=== PATIENT | female | born 1970 | race African-American/Black ===

== ENCOUNTER 2017-04-23 16:05 | Emergency (ER) | payer MEDICAID ==
--- NOTE | 2017-04-23 16:35 | EDM.PDOC ---
<Joshua Lebron - Last Filed: 04/23/17 16:25> ED HPI GENERAL MEDICAL PROBLEM - General Chief Complaint: Upper Extremity Injury/Pain Stated Complaint: RT HAND HURTS Time Seen by Provider: 04/23/17 16:47 Source of Information: Reports: Patient History Limitations: Reports: No Limitations - History of Present Illness INITIAL COMMENTS - FREE TEXT/NARRATIVE: History of present illness: [46-year-old female comes in complaining of wrist pain. Denies any trauma acknowledges that her job requires repetitive motion and she says she has read up on carpal tunnel and she believes that might be what she has.] Review of systems: As per history of present illness and below otherwise all systems reviewed and negative. Past medical history: As per history of present illness and as reviewed below otherwise noncontributory. Surgical history: As per history of present illness and as reviewed below otherwise noncontributory. Social history: No reported history of drug or alcohol abuse. Family history: As per history of present illness and as reviewed below otherwise noncontributory. Physical exam: HEENT: Atraumatic, normocephalic, pupils reactive, negative for conjunctival pallor or scleral icterus, mucous membranes moist, throat clear, neck supple, nontender, trachea midline. Lungs: Clear to auscultation, breath sounds equal bilaterally, chest nontender. Heart: S1S2, regular, negative for clicks, rubs, or JVD. Abdomen: Soft, nondistended, nontender. Negative for masses or hepatosplenomegaly. Negative for costovertebral tenderness. Pelvis: Stable nontender. Genitourinary: Deferred. Rectal: Deferred. Extremities: Atraumatic, pain on ulnar side radiating down into hand with point tenderness with pressure, negative for cords or calf pain. Neurovascular unremarkable. Neuro: Awake, alert, oriented. Cranial nerves II through XII unremarkable. Cerebellum unremarkable. Motor and sensory unremarkable throughout. Exam nonfocal. Patient indicates that her hands hurt worse at night and in the morning when she wakes up she has trouble moving fingers including inability to snap her fingers indicates that she does a lot of repetitive motion at her work and she notices that's when she has the most pain. symptoms were indeed consistent with carpal tunnel and would provide a immobilizer as well as an anti-inflammatory and referral to a primary care for further diagnostic workup potential nerve conduction study and referral. Diagnostics: [] Therapeutics: [] Impression: [#1 wrist pain] Plan: [Meloxicam, immobilizer] Definitive disposition and diagnosis as appropriate pending reevaluation and review of above. - Related Data Allergies Allergy/AdvReac Type Severity Reaction Status Date / Time No Known Allergies Allergy Verified 04/23/17 16:24 Home Meds: Home Meds Meloxicam 7.5 mg PO BID #30 tablet 04/23/17 [Rx] Past Medical History [employer] History: Reports: - Past Surgical History Female Surgical History: Reports: Section Social & Family History - Family History Family Medical History: Noncontributory - Tobacco Use Smoking Status *Q: Current Every Day Smoker Years of Tobacco use: 20 Packs/Tins Daily: 0.3 Used Tobacco, but Quit: No Second Hand Smoke Exposure: Yes - Caffeine Use Caffeine Use: Reports: None - Recreational Drug Use Recreational Drug Use: No Review of Systems - Review of Systems Review Of Systems: See Below (See history of present illness) ED EXAM, GENERAL - Physical Exam Exam: See Below (See history of present illness) Course - Vital Signs Last Recorded V/S: Last Vital Signs Temp 36.6 C 04/23/17 16:05 Pulse 72 04/23/17 16:05 Resp 18 04/23/17 16:05 BP 112/73 04/23/17 16:05 Pulse Ox 99 04/23/17 16:05 - Orders/Labs/Meds Orders: Active Orders 24 hr Category Date Time Status DME for Discharge [COMM] Stat Oth 04/23/17 16:52 Ordered Departure - Departure Time of Disposition: 16:54 Disposition: Home, Self-Care 01 Condition: Good Clinical Impression: Wrist pain - Discharge Information Prescriptions: Meloxicam 7.5 mg PO BID #30 tablet Instructions: Wrist Pain, [id number] Referrals: PCP,None [Primary Care Provider] - Forms: ED Department Discharge Additional Instructions: The following information is given to patients seen in the emergency department who are being discharged to home. This information is to outline your options for follow-up care. We provide all patients seen in our emergency department with a follow-up referral. The need for follow-up, as well as the timing and circumstances, are variable depending upon the specifics of your emergency department visit. If you don't have a primary care physician on staff, we will provide you with a referral. We always advise you to contact your personal physician following an emergency department visit to inform them of the circumstance of the visit and for follow-up with them and/or the need for any referrals to a consulting specialist. The emergency department will also refer you to a specialist when appropriate. This referral assures that you have the opportunity for follow-up care with a specialist. All of these measure are taken in an effort to provide you with optimal care, which includes your follow-up. Under all circumstances we always encourage you to contact your private physician who remains a resource for coordinating your care. When calling for follow-up care, please make the office aware that this follow-up is from your recent emergency room visit. If for any reason you are refused follow-up, please contact the [facility] Emergency Department at and asked to speak to the emergency department charge nurse. Use your splint as much as possible Take your medicine as directed Follow-up with your PCP in 1-2 days Return to ED as needed as discussed [facility] [address] [place] [id number] <Alida Arizmendi - Last Filed: 04/23/17 17:57> ED HPI GENERAL MEDICAL PROBLEM - History of Present Illness INITIAL COMMENTS - FREE TEXT/NARRATIVE: Please add to therapeutics Velcro wrist splint right wrist Pain Score (Numeric/FACES): 8
[2017-04-23 19:25] VITALS: BP 107/66
== END 2017-04-23 17:15 | disposition home or self-care (01) ==
LOC: MW.ED 16:05
DX: M25.531 Pain in right wrist (principal); F17.210 Nicotine dependence, cigarettes, uncomplicated
CPT/HCPCS: 99282; 99283

== ENCOUNTER 2017-05-20 14:02 | Emergency (ER) | payer MEDICAID ==
[2017-05-20] MEDS ORDERED: Ondansetron 4 MG Tab.DIS PO ONE (14:39)
[2017-05-20] MEDS ORDERED: Dicyclomine 10 MG Cap PO ONE (14:39)
--- NOTE | 2017-05-20 14:43 | EDM.PDOC ---
ED HPI GENERAL MEDICAL PROBLEM - General Chief Complaint: Abdominal Pain Stated Complaint: ABD PAIN Time Seen by Provider: 05/20/17 14:32 - History of Present Illness INITIAL COMMENTS - FREE TEXT/NARRATIVE: HISTORY AND PHYSICAL: History of present illness: The patient is a 46-year-old female with a history of a and bilateral tubal ligation but no other GI or history presents with complaints of diffuse abdominal pain that has been going on for the last 2 days. She says it was gradual in onset and is diffuse and not localize right or left or upper or lower abdominal areas. It is associated with nausea but no vomiting and she has had a bowel movement daily including one today which was not black or bloody and not diarrhea. The patient says that the pain waxes and wanes and when it intensifies she feels the urge to defecate but nothing happens. She's been urinating normally and has no flank pain. She has no fevers chills or upper respiratory symptoms. The patient says that she feels somewhat bloated and gassy. She has tried [id number] gas medications and it did not help. On my evaluation she says she's having the discomfort but is not excruciating and she has the nausea still. Patient does admit that she drinks a lot of soda pop and does not eat a very healthy diet more on the go. Review of systems: As per history of present illness and below otherwise all systems reviewed and negative. Past medical history: As per history of present illness and as reviewed below otherwise noncontributory. Surgical history: As per history of present illness and as reviewed below otherwise noncontributory. Social history: No reported history of drug or alcohol abuse. Family history: As per history of present illness and as reviewed below otherwise noncontributory. Physical exam: Gen.: Well-developed well-nourished female who is nontoxic and vital signs have been reviewed by me. She moves easily in ED without distress HEENT: Atraumatic, normocephalic, pupils reactive, negative for conjunctival pallor or scleral icterus, mucous membranes moist, throat clear, neck supple, nontender, trachea midline. Lungs: Clear to auscultation, breath sounds equal bilaterally, chest nontender. Heart: S1S2, regular rate and rhythm no overt murmurs Abdomen: Soft, nondistended, nontender--my evaluation and was actually no tenderness rebound or guarding on palpation but there was tympany on percussion.. Negative for masses or hepatosplenomegaly. Negative for costovertebral tenderness. Pelvis: Stable nontender. Genitourinary: Deferred. Rectal: Deferred. Extremities: Atraumatic, negative for cords or calf pain. Neurovascular unremarkable. Neuro: Awake, alert, oriented. Cranial nerves II through XII unremarkable. Cerebellum unremarkable. Motor and sensory unremarkable throughout. Exam nonfocal. Diagnostics: Abdominal x-rays CBC CMP amylase lipase UA Therapeutics: Zofran and Bentyl Patient is aware of all testing results and care plan for home to include the Bentyl and Zofran. I've advised her on reasons to return and things to look out for. She states understanding. We talked about reducing soda pop and poor dietary intake. I will refer to the clinic. Physically asked her about her period and the urine sample and she said she is just finishing her period so there might of been a small amount of blood in the urine associated with that Impression: Abdominal pain/nausea/abdominal distention stable Definitive disposition and diagnosis as appropriate pending reevaluation and review of above. abdomen Pain Score (Numeric/FACES): 10 - Related Data Allergies Allergy/AdvReac Type Severity Reaction Status Date / Time No Known Allergies Allergy Verified 05/20/17 14:11 Home Meds: Home Meds . [No Known Home Meds] 05/20/17 [History] Past Medical History - Past Health History Medical/Surgical History: Denies Medical/Surgical History [employer] History: Reports: - Past Surgical History Female Surgical History: Reports: Section Social & Family History - Family History Family Medical History: Noncontributory - Tobacco Use Smoking Status *Q: Current Every Day Smoker Years of Tobacco use: 25 Packs/Tins Daily: 1 Used Tobacco, but Quit: No Second Hand Smoke Exposure: Yes - Caffeine Use Caffeine Use: Reports: Coffee Caffeine Use Comment: 2 cups daily - Recreational Drug Use Recreational Drug Use: Yes Drug Use in Last 12 Months: Yes Recreational Drug Type: Reports: Marijuana/Hashish Recreational Drug Use Frequency: Daily ED ROS GENERAL - Review of Systems Review Of Systems: ROS reveals no pertinent complaints other than HPI. ED EXAM, GENERAL - Physical Exam Exam: See Below (See dictation) Course - Vital Signs Last Recorded V/S: Last Vital Signs Temp 36.8 C 05/20/17 14:02 Pulse 77 05/20/17 14:02 Resp 18 05/20/17 14:02 BP 103/61 05/20/17 14:02 Pulse Ox 100 05/20/17 14:02 - Orders/Labs/Meds Labs: Laboratory Tests 05/20/17 05/20/17 05/20/17 Range/Units 14:48 14:48 14:50 WBC 11.34 H (4.0-11.0) K/uL RBC 3.55 L (4.30-5.90) M/uL Hgb 11.7 L (12.0-16.0) g/dL Hct 34.7 L (36.0-46.0) % MCV 97.7 (80.0-98.0) fL MCH 33.0 H (27.0-32.0) pg MCHC 33.7 (31.0-37.0) g/dL RDW Std Deviation 50.4 (28.0-62.0) fl RDW Coeff of Kishan 14 (11.0-15.0) % Plt Count 228 (150-400) K/uL MPV 9.50 (7.40-12.00) fL Neut % (Auto) 85.7 H (48.0-80.0) % Lymph % (Auto) 8.9 L (16.0-40.0) % Garza % (Auto) 4.7 (0.0-15.0) % Eos % (Auto) 0.6 (0.0-7.0) % Baso % (Auto) 0.1 (0.0-1.5) % Neut # (Auto) 9.7 H (1.4-5.7) K/uL Lymph # (Auto) 1.0 (0.6-2.4) K/uL Garza # (Auto) 0.5 (0.0-0.8) K/uL Eos # (Auto) 0.1 (0.0-0.7) K/uL Baso # (Auto) 0.0 (0.0-0.1) K/uL Nucleated RBC % 0.0 /100WBC Nucleated RBCs # 0 K/uL Sodium 139 (136-146) mmol/L Potassium 3.5 (3.5-5.1) mmol/L Chloride 110 (98-110) mmol/L Carbon Dioxide 22 (21-31) mmol/L BUN 5 L (6.0-23.0) mg/dL Creatinine 0.7 (0.6-1.5) mg/dL Est Cr Clr Drug Dosing 84.84 mL/min Estimated GFR (MDRD) > 60.0 ml/min Glucose 92 (60-110) mg/dL Calcium 8.8 (8.8-10.8) mg/dL Total Bilirubin 0.4 (0.1-1.5) mg/dL AST 37 (5-40) IU/L ALT 27 (8-54) IU/L Alkaline Phosphatase 57 (40-150) Total Protein 6.6 (6.0-8.0) g/dL Albumin 3.8 (3.5-5.0) g/dL Globulin 2.8 (2.0-3.5) g/dL Albumin/Globulin Ratio 1.4 (1.3-2.8) Amylase 87 (10-90) U/L Lipase 25 (7-80) U/L Urine Color YELLOW Urine Appearance CLEAR Urine pH 7.5 (5.0-8.0) Ur Specific [place] 1.020 (1.001-1.035) Urine Protein NEGATIVE (NEGATIVE) mg/dL Urine Glucose (UA) NEGATIVE (NEGATIVE) mg/dL Urine Ketones NEGATIVE (NEGATIVE) mg/dL Urine Occult Blood TRACE-INTACT (NEGATIVE) Urine Nitrite NEGATIVE (NEGATIVE) Urine Bilirubin NEGATIVE (NEGATIVE) Urine Urobilinogen 1.0 (<2.0) EU/dL Ur Leukocyte Esterase NEGATIVE (NEGATIVE) Urine RBC 4-7 (0-2/HPF) Urine WBC 0-1 (0-5/HPF) Ur Epithelial Cells FEW (NONE-FEW) Urine Bacteria RARE (NEGATIVE) Urine Mucus LIGHT (NONE-MOD) Meds: Medications Discontinued Medications Generic Name Dose Route Start Last Admin Trade Name Freq PRN Reason Stop Dose Admin Dicyclomine HCl 20 mg 05/20/17 14:39 05/20/17 14:49 Bentyl PO 05/20/17 14:40 20 mg ONETIME ONE Administration Ondansetron HCl 4 mg 05/20/17 14:39 05/20/17 14:49 Zofran Odt PO 05/20/17 14:40 4 mg ONETIME ONE Administration Departure - Departure Time of Disposition: 16:13 Disposition: Home, Self-Care 01 Condition: Good Clinical Impression: Abdominal pain Qualifiers: Abdominal location: generalized Qualified Code(s): R10.84 - Generalized abdominal pain - Discharge Information Referrals: Kellee Zhao QUILT STUFFER [Primary Care Provider] - Forms: ED Department Discharge Additional Instructions: The following information is given to patients seen in the emergency department who are being discharged to home. This information is to outline your options for follow-up care. We provide all patients seen in our emergency department with a follow-up referral. The need for follow-up, as well as the timing and circumstances, are variable depending upon the specifics of your emergency department visit. If you don't have a primary care physician on staff, we will provide you with a referral. We always advise you to contact your personal physician following an emergency department visit to inform them of the circumstance of the visit and for follow-up with them and/or the need for any referrals to a consulting specialist. The emergency department will also refer you to a specialist when appropriate. This referral assures that you have the opportunity for followup care with a specialist. All of these measure are taken in an effort to provide you with optimal care, which includes your followup. Under all circumstances we always encourage you to contact your private physician who remains a resource for coordinating your care. When calling for followup care, please make the office aware that this follow-up is from your recent emergency room visit. If for any reason you are refused follow-up, please contact the [facility] emergency department at and ask to speak to the emergency department charge nurse. [facility] Primary care- Internal Medicine and Family [address] [id number] Please try to eat a bland diet the next few days and avoid junk foods and spicy foods fast foods and caffeine as well as pop. Use Zofran and Bentyl as needed for symptoms and return to ER as needed and as discussed. Please call and make a follow-up appointment in our clinic for further reevaluation and care.
[2017-05-20 15:14] LABS: CHLORIDE,CL 110 mmol/L (98-110); SODIUM,NA 139 mmol/L (136-146)
--- NOTE | 2017-05-20 15:41 | CR ---
EXAMINATION: Abdomen HISTORY: Pain COMPARISON: None TECHNIQUE: AP and upright views FINDINGS: There is no free air in the diaphragm. Small amount of stool and gas noted throughout the s mall bowel, colon, and rectum. No evidence of a small bowel obstruction. No abnormal calcifications p roject over the kidneys. No organomegaly. Visualized osseous structures appear grossly unremarkable. IMPRESSION: Nonobstructive bowel gas pattern.
[2017-05-20 16:23] VITALS: BP 136/78
== END 2017-05-20 16:23 | disposition home or self-care (01) ==
LOC: MW.ED 14:02
DX: R10.84 Generalized abdominal pain (principal); F17.210 Nicotine dependence, cigarettes, uncomplicated
CPT/HCPCS: 36415; 74020; 80053; 81001; 82150; 83690; 85025; 99284; A9270; 99283

== ENCOUNTER 2017-07-19 06:31 | Emergency (ER) | payer MEDICAID ==
[2017-07-19 06:50] VITALS: BP 107/59
--- NOTE | 2017-07-19 07:30 | EDM.PDOC ---
ED HPI GENERAL MEDICAL PROBLEM - General Chief Complaint: General Stated Complaint: BODY ACHES, FEVER Time Seen by Provider: 07/19/17 07:10 Source of Information: Reports: Patient History Limitations: Reports: No Limitations - History of Present Illness INITIAL COMMENTS - FREE TEXT/NARRATIVE: History of present illness: []Patient has had 4 day history of body aches, sore throat and congestion. She has not taken temperature has been having chills and sweats. Review of systems: As per history of present illness and below otherwise all systems reviewed and negative. Past medical history: As per history of present illness and as reviewed below otherwise noncontributory. Surgical history: As per history of present illness and as reviewed below otherwise noncontributory. Social history: No reported history of drug or alcohol abuse. Family history: As per history of present illness and as reviewed below otherwise noncontributory. Physical exam: General: Well developed, well nourished in NAD HEENT: Atraumatic, normocephalic, pupils reactive, negative for conjunctival pallor or scleral icterus, mucous membranes moist, throat clear, neck supple, nontender, trachea midline. Lungs: Clear to auscultation, breath sounds equal bilaterally, chest nontender. Heart: S1S2, regular, negative for clicks, rubs, or JVD. Abdomen: Soft, nondistended, nontender. Negative for masses or hepatosplenomegaly. Negative for costovertebral tenderness. Pelvis: Stable nontender. Genitourinary: Deferred. Rectal: Deferred. Extremities: Atraumatic, negative for cords or calf pain. Neurovascular unremarkable. Neuro: Awake, alert, oriented. Cranial nerves II through XII unremarkable. Cerebellum unremarkable. Motor and sensory unremarkable throughout. Exam nonfocal. Diagnostics: []Influenza A and B- Therapeutics: [] Impression: []Viral syndrome Plan: []Continue [id number] cold remedies for him to dramatic relief follow-up with PMD needed Definitive disposition and diagnosis as appropriate pending reevaluation and review of above. Generalized Pain Score (Numeric/FACES): 6 - Related Data Allergies Allergy/AdvReac Type Severity Reaction Status Date / Time No Known Allergies Allergy Verified 07/19/17 06:45 Home Meds: Home Meds . [No Known Home Meds] 05/20/17 [History] Past Medical History - Past Health History Medical/Surgical History: Denies Medical/Surgical History [employer] History: Reports: - Past Surgical History Female Surgical History: Reports: Section Social & Family History - Family History Family Medical History: Noncontributory - Tobacco Use Smoking Status *Q: Current Every Day Smoker Years of Tobacco use: 20 Packs/Tins Daily: 0.3 Used Tobacco, but Quit: No Second Hand Smoke Exposure: Yes - Caffeine Use Caffeine Use: Reports: Coffee, Energy Drinks, Soda Caffeine Use Comment: 2 cups daily - Recreational Drug Use Recreational Drug Use: Yes Drug Use in Last 12 Months: Yes Recreational Drug Type: Reports: Marijuana/Hashish Recreational Drug Use Frequency: Daily ED ROS GENERAL - Review of Systems Review Of Systems: See Below (See history of present illness) ED EXAM, GENERAL - Physical Exam Exam: See Below (See history of present illness) Course - Vital Signs Last Recorded V/S: Last Vital Signs Temp 97.4 F 07/19/17 06:49 Pulse 71 07/19/17 06:49 Resp 18 07/19/17 06:49 BP 107/59 L 07/19/17 06:49 Pulse Ox 99 07/19/17 06:49 Departure - Departure Time of Disposition: 08:12 Disposition: Home, Self-Care 01 Condition: Good Clinical Impression: Viral syndrome - Discharge Information Referrals: Kellee Zhao NP [Primary Care Provider] - Forms: ED Department Discharge Additional Instructions: The following information is given to patients seen in the emergency department who are being discharged to home. This information is to outline your options for follow-up care. We provide all patients seen in our emergency department with a follow-up referral. The need for follow-up, as well as the timing and circumstances, are variable depending upon the specifics of your emergency department visit. If you don't have a primary care physician on staff, we will provide you with a referral. We always advise you to contact your personal physician following an emergency department visit to inform them of the circumstance of the visit and for follow-up with them and/or the need for any referrals to a consulting specialist. The emergency department will also refer you to a specialist when appropriate. This referral assures that you have the opportunity for follow-up care with a specialist. All of these measure are taken in an effort to provide you with optimal care, which includes your follow-up. Under all circumstances we always encourage you to contact your private physician who remains a resource for coordinating your care. When calling for follow-up care, please make the office aware that this follow-up is from your recent emergency room visit. If for any reason you are refused follow-up, please contact the [facility] Emergency Department at and asked to speak to the emergency department charge nurse. Increase fluids, pqso-[id number] cold remedies for symptomatic relief, follow- up with your primary care physician as needed. [facility] Primary [facility] [place] [id number]
== END 2017-07-19 08:26 | disposition home or self-care (01) ==
LOC: MW.ED 06:31
DX: B34.9 Viral infection, unspecified (principal); F17.210 Nicotine dependence, cigarettes, uncomplicated
CPT/HCPCS: 87804; 99283